=== PATIENT | female | born 1995 | race Caucasian/White ===

== ENCOUNTER 2017-08-24 07:20 | Emergency (ER) | payer OTHER ==
[~2017-08-24] VITALS: Ht 157.5 cm; Wt 62.3 kg
[2017-08-24 08:09] LABS: APPEARANCE CLEAR ((CLEAR)); BILIRUBIN NEGATIVE; BLOOD NEGATIVE; COLOR YELLOW ((YELLOW)); GLUCOSE (STRIP) NEGATIVE; KETONES NEGATIVE; LEUKOCYTES NEGATIVE; NITRITE NEGATIVE; PROTEIN (STRIP) NEGATIVE; SPECIFIC GRAVITY 1.023 (1.000-1.030); UCUL ADDED? NO
[2017-08-24 08:14] LABS: HEMATOCRIT 39.6 % (36.0-46.0); HEMOGLOBIN 13.3 G/DL (11.9-15.5); MCH 30.9 PG (29.0-34.0); MCHC 33.6 G/DL (30.0-36.0); MCV 92.1 FL (83-99); PLATELET COUNT 173 K/uL (156-360); RBC DIS.WIDTH-CV 12.8 % (11.8-14.6); RBC DIS.WIDTH-SD 42.9 % (39-53); WHITE BLOOD COUNT 7.1 K/uL (4.1-10.2)
[2017-08-24] MEDS ORDERED: ROBINUL1 MG PO (08:52)
[2017-08-24 09:01] LABS: CHLORIDE 106 MEQ/L (99-109); POTASSIUM 3.9 MEQ/L (3.7-5.4); SODIUM 141 MEQ/L (136-147)
[2017-08-24 09:07] LABS: CREATININE 0.6 MG/DL (0.6-1.3); GFR ESTIMATE (CALCULATED) > 59 mL/min/; GLUCOSE 94 mg/dL (70-99); UREA NITROGEN (BUN) 9 mg/dL (9-23)
[2017-08-24 09:10] LABS: QUANTITATIVE HCG < 4.0 MIU/ML
[2017-08-24] MEDS ORDERED: TESSALON PERLE100 MG PO (09:52)
[2017-08-24] MEDS ORDERED: ZOFRAN ODT4 MG PO (09:52)
[2017-08-24 11:04] VITALS: BP 121/75
== END 2017-08-24 11:06 | disposition home or self-care (01) ==
LOC: EME 07:20
DX: B34.9 Viral infection, unspecified (principal); J02.8 Acute pharyngitis due to other specified organisms
CPT/HCPCS: 80048; 81003; 84702; 85027; 87651 90; 99281; 99284; J2405; J7030